=== PATIENT | female | born 1930 | race Caucasian/White ===

== ENCOUNTER → 2016-10-07 | Outpatient (CLI) | payer MEDICARE, OTHER ==
[~2016-10-07] MED LIST: ACETAMINOPHEN PO; ACTOS PO; ALPRAZOLAM PO; AMARYL PO; AMBIEN10 MG PO; AMLODIPINE BESY10 MG PO; AMLODIPINE BESYL5 MG PO; ARICEPT PO; ARICEPT5 M1; ARICEPT5 M1 PO; ARICEPT5 MG PO; ASPIRIN EC81 M1 PO; ASPIRIN PO; ASPIRIN81 M2 PO; ASPIRIN81 MG; ASPIRIN81 MG PO; ASPIRINEC PO; ATACAND PO; ATORVASTATIN CA40 MG PO; CARTIA XT PO; CENTRUM COMPLE1 EACH PO; CLOPIDOGREL75 MG PO; COREG PO; CYANOCOBAL1000 MCG/M INJ; CYANOCOBAL1000 MCG/M SUBQ; DARVOCET-N 1001 TAB PO; DITROPAN XL PO; DITROPAN5 MG; DITROPAN5 MG PO; DONEPEZIL HCL10 MG PO; DYAZIDE 37.5/251 CAP PO; FISH OIL 1,001000 M1 PO; FISH OIL 10001000 MG PO; FISH OIL300 MG; FISH OIL300 MG PO; JANUMET 50-1,1 UDTAB; KAZANO 12.5-1,1 EACH PO; KEFLEX PO; KEFLEX500 M2 PO; KEPPRA500 M2; KEPPRA500 M2 PO; KEPPRA750 M1 PO; KEPPRA750 MG PO; LANSOPRAZOLE30 M2 PO; LANSOPRAZOLE30 MG PO; LANTUS SOLOSTAR3 ML SUBQ; LANTUS100 U/ML SUBQ; LANTUS100 UNITS/ SUBQ; LEVEMIR SUBQ; LEVETIRACETAM250 MG PO; LEVETIRACETAM500 MG PO; LISINOPRIL PO; LISINOPRIL10 MG; LISINOPRIL10 MG PO; LISINOPRIL5 MG PO; LOPRESSOR PO; LORTAB 7.5-5001 TAB PO; MEMANTINE HCL10 MG PO; METFORMIN PO; MOBIC; MOBIC PO; MULTI VITAMIN1 EACH PO; NORPACE CR150 MG PO; NORPACE150 MG PO; NORVASC; NORVASC PO; NORVASC10 MG PO; NOVOLOG FL100 UNIT/1 SUBQ; NOVOLOG100 U/M1; NOVOLOG100 U/M2 SUBQ; NOVOLOG100 U/ML; NOVOLOG100 U/ML SQ; OMEGA 3 FISH OI1 CAP PO; ONE-A-DAY MENO1 EACH PO; PAROXETINE HCL10 MG PO; PAROXETINE HCL40 M1 PO; PAXIL; PAXIL PO; PAXIL10 MG PO; PAXIL40 MG PO; PLAVIX; PLAVIX PO; PRANDIN2 MG PO; PREVACID; PREVACID PO; PRINIVIL40 MG PO; RISPERIDONE0.5 MG PO; SEROQUEL50 M1 PO; TOPROL XL; TOPROL XL 50 MG50 MG PO; TOPROL XL PO; VICODIN PO; VITAMIN B-121000 MCG PO; ZESTRIL40 MG PO; ZOCOR; ZOCOR PO; ZOCOR20 MG PO
--- NOTE | ~2016-10-07 | US135 ---
[facility] A Service of [facility] RADIOLOGY TEXT RESULTS PATIENT: MP CASSIDY V LOCATION: CNIV : 29 UNIT #: [id number] AGE: [address]: Darian Ramirez MD SEX: F ORDER DR: [id number] [facility] [address] [place], [place] [address] [id number] MR#: [id number] Acc #: [id number] NAME: MP CASSIDY : 1930 SEX: F STUDY DATE/TIME: 10/07/2016 14:04 UNIT: CNIV ROOM: STUDY DESCRIPTION: US U/L Ext Art Study Comp Rafael Attending Physician: Darian Ramirez M.D. Referring Physician: Darian Ramirez M.D. Ordering Physician: Darian Ramirez M.D. Primary Care Physician: Walter Prakash M.D. MEDICAL IMAGING REPORT This report is preliminary unless electronic signature is present EXAM Lower extremity arterial segmental pressures 10/07/2016 HISTORY Peripheral artery disease. FINDINGS The right brachial pressure is 162 and the left brachial pressure is 164. The right upper thigh pressure is 211, lower thigh 193, calf 198, dorsalis pedis 179, posterior tibial 177, and toe 132 for an ankle to brachial index of 1.09. The left upper thigh pressure is 211, lower thigh 209, calf 196, dorsalis pedis 158, posterior tibial 172, and toe 120 for an ankle to brachial index of 1.05. Doppler waveform analysis indicates a biphasic signal in the posterior tibial and dorsalis pedis arteries bilaterally. Pulse volume recording tracings demonstrate a good amplitude signal at all levels in both legs. IMPRESSION Normal perfusion to both legs. Ankle to brachial index is 1.09 on the right and 1.05 on the left. Dictated by... Christopher Connors M.D. [facility] A Service of [facility] RADIOLOGY TEXT RESULTS PATIENT: MP CASSIDY V LOCATION: CNIV : 29 UNIT #: [id number] AGE: [address]: Darian Ramirez MD SEX: F ORDER DR: THIS IS AN ELECTRONICALLY VERIFIED REPORT Christopher Connors M.D. at 10/10/2016 8:04 AM Cristina TD: 10/07/2016 18:12 JOB #: [id number] MEDICAL IMAGING REPORT Page 1 of 1 COPY
== END | disposition home or self-care (01) ==
LOC: CNIV 10-06 11:30
DX: I73.9 Peripheral vascular disease, unspecified (principal)
CPT/HCPCS: 93923